=== PATIENT | male | born 1955 ===

== ENCOUNTER 2020-06-28 09:00 | Inpatient (IN) | payer OTHER ==
[~2020-06-28] VITALS: Ht 154.9 cm; Wt 82.1 kg
[2020-06-28] MEDS ORDERED: METFORMIN HCL1000 M2 PO (11:21)
[2020-06-28] MEDS ORDERED: NORVASC5 MG PO (11:21)
[2020-06-28] MEDS ORDERED: PREVACID30 MG PO (11:22)
[2020-06-28] MEDS ORDERED: FARXIGA5 MG PO (11:22)
[2020-06-28] MEDS ORDERED: GLIMEPIRIDE1 MG (11:22)
[2020-07-07] MEDS ORDERED: LEVOFLOXACIN500 MG PO (08:28)
[2020-07-07] MEDS ORDERED: OXYC1TAB9 PO (08:28)
[2020-07-07] MEDS ORDERED: HYOSCYAMINE0.125 M1 SL (08:31)
== END 2020-07-07 10:23 | disposition home or self-care (01) | DRG 331 ==
LOC: O/R 07-03 05:32 → SURH 07-03 05:32
PROVIDERS: ADMIT Surgery; ATTEND Surgery
PROC: 07TC4ZZ Resection of Pelvis Lymphatic, Percutaneous Endoscopic Approach (ICD-10-PCS; 2020-07-03)
PROC: 0DBV4ZZ Excision of Mesentery, Percutaneous Endoscopic Approach (ICD-10-PCS; 2020-07-03)
PROC: 0DTF4ZZ Resection of Right Large Intestine, Percutaneous Endoscopic Approach (ICD-10-PCS; principal; 2020-07-03 08:15)
DX: C18.1 Malignant neoplasm of appendix (principal); Z20.828 Contact with and (suspected) exposure to other viral communicable diseases; R59.0 Localized enlarged lymph nodes; I11.9 Hypertensive heart disease without heart failure; D64.89 Other specified anemias